=== PATIENT | male | born 1970 | race Two or more races ===

== ENCOUNTER 2022-05-19 22:30 | Inpatient (IN) | payer MEDICAID, OTHER ==
[~2022-05-19] VITALS: Ht 172.7 cm; Wt 72.6 kg
--- NOTE | 2022-05-19 22:49 | NUR ---
BIBPA C/O PULLED OUT G TUBE AROUND 5 PM. PT ALTERRED AT BASELINE MENTAL STATUS. GTUBE SITE COVERED BY 4X4 GAUZE. ALL V/S STABLE. MD WAS AT BEDSIDE FOR ASSESSMENT.
--- NOTE | 2022-05-19 22:50 | NUR ---
XRAY AT BEDSIDE
--- NOTE | 2022-05-19 22:58 | NUR ---
RAC #18G S/L BLOOD AND URINE COLLECTED AND SENT TO LAB
--- NOTE | 2022-05-19 22:59 | NUR ---
COVID SWAB DONE AND SENT TO LAB
[2022-05-19 23:05] LABS: BASOPHILS % (AUTO) 0.2 % (0.0-2.0); EOSINOPHILS % (AUTO) 0.9 % (0.0-6.0); HEMATOCRIT 37 % (39-51); HEMOGLOBIN 12.1 g/dL (13.5-17.5); LYMPHOCYTES # (AUTO) 2.3 K/uL (0.8-4.8); LYMPHOCYTES % (AUTO) 29.2 % (20.0-44.0); MEAN CORPUSCULAR HGB CONC 33 g/dl (31.0-36.0); MEAN CORPUSCULAR VOLUME 82 fL (80-96); MONOCYTES # (AUTO) 0.6 K/uL (0.1-1.30); MONOCYTES % (AUTO) 7.9 % (2.0-12.0); NEUTROPHILS # (AUTO) 4.9 K/uL (1.8-8.9); NEUTROPHILS % (AUTO) 61.8 % (43.0-81.0); PLATELET COUNT (AUTO) 215 K/uL (150-450); RED BLOOD CELL COUNT(AUTO) 4.46 MIL/uL (4.5-6.0); WHITE BLOOD COUNT (AUTO) 7.9 K/uL (4.3-11.0)
[2022-05-19 23:13] LABS: CALCIUM, SERUM 9.7 mg/dL (8.5-10.1); CREATININE 0.8 mg/dL (0.6-1.3); POTASSIUM 3.8 mmol/L (3.5-5.1)
[2022-05-19 23:15] VITALS: BP 152/89
[2022-05-19 23:19] LABS: ALBUMIN 3.3 g/dL (3.4-5.0); BILIRUBIN,DIRECT 0.1 mg/dL (0.0-0.2); BILIRUBIN,TOTAL 0.4 mg/dL (0.2-1.0); TOTAL PROTEIN, SERUM 7.6 g/dL (6.4-8.2)
--- NOTE | 2022-05-19 23:56 | NUR ---
DR CADENA DO ON PHONECALL WITH WALTER RUSSELL SAFETY ENGINEER REGARDING ADMISSION
[2022-05-20] MEDS ORDERED: ONDANSETRON HCL/PF 4 MG/2 ML VIAL IVP PRN
[2022-05-20] MEDS ORDERED: ACETAMINOPHEN 325 MG TABLET PO PRN
[2022-05-20] MEDS ORDERED: MAGNESIUM HYDROXIDE 30 ML UDC PO PRN
[2022-05-20] MEDS ORDERED: Z GUARD REMEDY 4 OZ OINT TP PRN
--- NOTE | 2022-05-20 00:06 | NUR ---
WALTER RUSSELL TALENT ACQUISITION LEAD AT PT'S BEDSIDE
--- NOTE | 2022-05-20 01:19 | NUR ---
REPORT GIVEN TO JULIETTE
--- NOTE | 2022-05-20 01:23 | NUR ---
PT TRANSPORTED VIA GURNEY TO ROOM 323
[2022-05-20 01:30] VITALS: BP 152/89
--- NOTE | 2022-05-20 01:30 | NUR ---
RN NOTES: AT 0117 RECIEVED ENDORSEMENT FROM HIRA/ER/RN PATIENT WAS BROUG[facility] TO ER [facility]UL[facility], AT 17OO THIS AFTERNOON HIS PEG TUBE WAS PULLED OUT, NO CATHETER PALCEMENT TO MAINTAIN PATENCY, ER DOCTOR TRIED TO REINSERT PEG BUT UNABLE TO DO SO , IT IS ALREADY CLOSED, A/DAYANARA SELF ONLY, HE HAS TRACH-PEICE, ON ROOM AIR, SPO2-99% , NO SKIN ISSUES, LABS ARE WITHIN NORMAL RANGE ,MED RECON DONE, MRSA SENT, COVID 19 RAPID TEST-NEGATIVE, HE HAS ANTONI AND ANTONI VACCINE, NO BOOSTER.
--- NOTE | 2022-05-20 01:35 | NUR ---
RN NOTES: -NEW ADMIT AT 0130, BROUGHT IN BY ER STAFF VIA ZAHRAA, A/O X1 SELF ONLY,NON VERBAL, ORIENTED TO UNIT AND STAFF, ON T-PIECE, ROOM AIR 94%, NO COUGHING, NON LABORED BREATHING, NO SOB, HIS PEG TUBE IS OUT, FOR REINSERTION.CHILEAN-18,IV CANNULA ON RAC G#18, NO DISCOLORATION ON BUE AND BLE, HE HAS WEAKNESS AND FLACCID ON BUE, BLE, HE WAS ABLE TO DO FLEXION AND EXTENSION AROM AND FOLLOW COMMAND. DRYNESS OF THE SKIN ON THE RIGHT AND LEFT FOOT. -FALL,SAFETY, ASPIRATION AND SEIZURE PRECAUTION OBSERVED. Addendum: 05/20/22 at 0555 by YESICA DICKERSON RN HOWARD NOTES: MORE WEAKNESS ON THE LEFT SIDE OF THE BODY,COMPARED TO THE RIGHT SIDE, NO CONTRACTURES, HIS LEFT FIST IS ALWAYS CLOSE, NOTED WITH LEFT FACIAL DEVIATION AND HIS LEFT EYES IS BLINKING AND CLOSE AT TIMES LIKE PTOSIS.
[2022-05-20] MEDS: IV D5/0.45 NACL 1,000 ML IV PRN ×2 (02:06→16:16)
--- NOTE | 2022-05-20 02:06 | NUR ---
RN NOTES: -IVF OF D5%1/2 NS AT 75 ML/HR, STARTED. BODY CHECK DONE: 1) REDNESS ON THE PEG SITE, PER ENDORSEMENT IT WAS GEORGIAN-18 2) IV CANNULA ON THE RFA G#18 3)T-PIECE 4)NO DENTURES, NO HEARING AID, NO PACE MAKER 5)RUE AND LUE WEAKNESS 6)DRY SKIN ON THE RIGHT AND LEFT FOOT AREA
--- NOTE | 2022-05-20 05:55 | NUR ---
RN NOTES: TURNING AND REPOSITIONING DONE, BRIEF CHANGE 2X, LARGE AMOUNT OF PEE, NO BM, IVF ONGOING.
[2022-05-20 06:26] LABS: BASOPHILS % (AUTO) 0.2 % (0.0-2.0); EOSINOPHILS % (AUTO) 0.9 % (0.0-6.0); HEMATOCRIT 37 % (39-51); HEMOGLOBIN 11.9 g/dL (13.5-17.5); LYMPHOCYTES # (AUTO) 2.2 K/uL (0.8-4.8); LYMPHOCYTES % (AUTO) 31.8 % (20.0-44.0); MEAN CORPUSCULAR HGB CONC 33 g/dl (31.0-36.0); MEAN CORPUSCULAR VOLUME 83 fL (80-96); MONOCYTES # (AUTO) 0.5 K/uL (0.1-1.30); MONOCYTES % (AUTO) 7.8 % (2.0-12.0); NEUTROPHILS # (AUTO) 4.1 K/uL (1.8-8.9); NEUTROPHILS % (AUTO) 59.3 % (43.0-81.0); PLATELET COUNT (AUTO) 211 K/uL (150-450); RED BLOOD CELL COUNT(AUTO) 4.41 MIL/uL (4.5-6.0)
[2022-05-20 06:58] LABS: CALCIUM, SERUM 9.6 mg/dL (8.5-10.1); CREATININE 0.8 mg/dL (0.6-1.3); POTASSIUM 3.8 mmol/L (3.5-5.1)
[2022-05-20 07:19] LABS: THYROID STIMULATING HORMONE 3.482 uIU/mL (0.358-3.74)
--- NOTE | 2022-05-20 07:30 | NUR ---
MS RN OPENING NOTES RECEIVED PATIENT ON BED AWAKE AND A/O TO SELF ONLY, NON VERBAL. WITH T-PIECE AND ON ROOM AIR TOLERATING WELL. IN NO SIGNS OF PAIN VIA FLACC LEVEL OF PAIN. WITH IV ACCESS AT THE RIGHT AC G18 WITH D5 1/2NS AT 75ML/HR INFUSING WELL. STILL FOR GI CONSULT WITH DR. DAVIS. SAFETY MEASURES IN PLACED. CALL LIGHT WITHIN REACH. BED ON LOWEST LOCKED POSITION, SIDE RAILS UP X2. WILL CONTINUE TO MONITOR.
[2022-05-20 08:00] VITALS: BP 140/90
--- NOTE | 2022-05-20 08:05 | NUR ---
RN NOTES: ABLE TO SLEEP AND REST, HE LOOKS MORE RELAX, ADEQUATE OUTPUT, CLEAN AND CHANGE,ON NPO, IVF CONTINUE, TO F/U WITH GI THIS MORNING FOR PEG REINSERTION. ENDORSED FOR CONTINUITY OF CARE.
[2022-05-20] MEDS ORDERED: MAGN400O6 GT (08:20)
[2022-05-20] MEDS ORDERED: IBUP-1953 GT (08:20)
[2022-05-20] MEDS ORDERED: CRAN3875 GT (08:20)
[2022-05-20] MEDS ORDERED: NA P133E RC (08:20)
[2022-05-20] MEDS ORDERED: ATOR20TA GT (08:20)
[2022-05-20] MEDS ORDERED: FAMO20TA8 GT (08:20)
[2022-05-20] MEDS ORDERED: HYDR-4075 GT (08:20)
[2022-05-20] MEDS ORDERED: MINE3.5O26 EACHEYE (08:20)
[2022-05-20] MEDS ORDERED: AMLO10TA4 GT (08:20)
[2022-05-20] MEDS ORDERED: LACT-209 GT (08:20)
[2022-05-20] MEDS ORDERED: BISA10SU11 RC (08:20)
[2022-05-20] MEDS ORDERED: ALBU8.5H8 IH ×2 (08:20)
[2022-05-20] MEDS ORDERED: SENN-261 GT (08:20)
[2022-05-20] MEDS ORDERED: DOCU50LI GT (08:20)
[2022-05-20] MEDS ORDERED: LABE200T5 GT (08:20)
[2022-05-20] MEDS ORDERED: ACET650S26 GT (08:20)
[2022-05-20] MEDS: PANTOPRAZOLE 40 MG VIAL IV SCH (09:37)
[2022-05-20 16:02] VITALS: BP 130/84
--- NOTE | 2022-05-20 19:05 | NUR ---
MS RN CLOSING NOTES PATIENT ON BED AWAKE AND A/O TO SELF ONLY, NON VERBAL. WITH T-PIECE AND ON ROOM AIR TOLERATING WELL. IN NO SIGNS OF PAIN VIA FLACC LEVEL OF PAIN. WITH IV ACCESS AT THE RIGHT AC G18 WITH D5 1/2NS AT 75ML/HR INFUSING WELL. STILL FOR GI CONSULT WITH DR. DAVIS. DUE MEDS GIVEN. SAFETY MEASURES IN PLACED. CALL LIGHT WITHIN REACH. BED ON LOWEST LOCKED POSITION, SIDE RAILS UP X2. WILL ENDORSE TO NEXT SHIFT FOR CODI.
[2022-05-20 20:00] VITALS: BP 138/93
[2022-05-21] MEDS: IV D5/0.45 NACL 1,000 ML IV PRN ×2 (05:28→18:42)
--- NOTE | 2022-05-21 05:37 | NUR ---
CLOSING NOTES: TURNED AND REPOSITIONED Q 2- 3 HOURS HE IS NONVERBAL HIS EYE ARE TRACKING NON FOCUSING ARMS ELEVATED ON PILLOW HANDS PUFFY CALLED THE MOTHER ON THE PHONE AND WITH 2ND NURSE WE WERE ABLE TO GET A TELEPHONE CONSENT FOR PEG REPLACEMENT WHEN MD RYAN ALEJO
[2022-05-21 08:00] VITALS: BP 146/88
[2022-05-21] MEDS: PANTOPRAZOLE 40 MG VIAL IV SCH (08:11)
[2022-05-21 08:27] LABS: BASOPHILS % (AUTO) 0.2 % (0.0-2.0); EOSINOPHILS % (AUTO) 0.6 % (0.0-6.0); HEMATOCRIT 35 % (39-51); HEMOGLOBIN 11.6 g/dL (13.5-17.5); LYMPHOCYTES # (AUTO) 1.9 K/uL (0.8-4.8); LYMPHOCYTES % (AUTO) 27.5 % (20.0-44.0); MEAN CORPUSCULAR HGB CONC 33 g/dl (31.0-36.0); MEAN CORPUSCULAR VOLUME 83 fL (80-96); MONOCYTES # (AUTO) 0.6 K/uL (0.1-1.30); MONOCYTES % (AUTO) 7.9 % (2.0-12.0); NEUTROPHILS # (AUTO) 4.5 K/uL (1.8-8.9); NEUTROPHILS % (AUTO) 63.8 % (43.0-81.0); PLATELET COUNT (AUTO) 218 K/uL (150-450); RED BLOOD CELL COUNT(AUTO) 4.24 MIL/uL (4.5-6.0)
[2022-05-21 08:42] LABS: CREATININE 0.8 mg/dL (0.6-1.3); MAGNESIUM 1.9 mg/dL (1.8-2.4); PHOSPHORUS 4.5 mg/dL (2.5-4.9); POTASSIUM 3.5 mmol/L (3.5-5.1)
[2022-05-21 16:00] VITALS: BP 150/100
--- NOTE | 2022-05-21 19:47 | NUR ---
RECEIVING NOTES: EYES OPEN TRACKING NO EYE FOCUS NON VERBAL BED ALARM ON RESP EVEN AND UNLABORED
[2022-05-21 19:58] VITALS: BP 147/94
[2022-05-21 20:00] VITALS: BP 147/94
[2022-05-22] MEDS: IV D5/0.45 NACL 1,000 ML IV PRN (04:48)
--- NOTE | 2022-05-22 05:17 | NUR ---
CLOSING NOTES: EYES OPEN TRACKING NO FUCUSING MAX ASSIST TO REPOSITION AND CLEAN PATIENT NON VERBAL ABD S/P PEG TUBE SITE DEEP PINK IN COLOR NPO WAITING FOR MDMOGHIMI TO REPLACE THE REMOVED PEG
[2022-05-22 06:26] LABS: BASOPHILS % (AUTO) 0.1 % (0.0-2.0); EOSINOPHILS % (AUTO) 0.4 % (0.0-6.0); HEMATOCRIT 35 % (39-51); HEMOGLOBIN 11.8 g/dL (13.5-17.5); LYMPHOCYTES # (AUTO) 1.8 K/uL (0.8-4.8); LYMPHOCYTES % (AUTO) 20.5 % (20.0-44.0); MEAN CORPUSCULAR HGB CONC 33 g/dl (31.0-36.0); MEAN CORPUSCULAR VOLUME 82 fL (80-96); MONOCYTES # (AUTO) 0.7 K/uL (0.1-1.30); MONOCYTES % (AUTO) 7.4 % (2.0-12.0); NEUTROPHILS # (AUTO) 6.4 K/uL (1.8-8.9); NEUTROPHILS % (AUTO) 71.6 % (43.0-81.0); PLATELET COUNT (AUTO) 215 K/uL (150-450); RED BLOOD CELL COUNT(AUTO) 4.31 MIL/uL (4.5-6.0)
[2022-05-22 06:52] LABS: CALCIUM, SERUM 9.1 mg/dL (8.5-10.1); CREATININE 0.7 mg/dL (0.6-1.3); MAGNESIUM 1.6 mg/dL (1.8-2.4); PHOSPHORUS 4.2 mg/dL (2.5-4.9); POTASSIUM 3.3 mmol/L (3.5-5.1)
--- NOTE | 2022-05-22 07:00 | NUR ---
MS RN OPENING NOTES PATIENT LAYING IN BED, ALERT TO SELF, NON-VERBAL. T-PIECE IN PLACE, PATIENT TOLERATING WELL ON ROOM AIR WITH NO S/S RESPIRATORY DISTRESS. NO S/S OF PAIN OR DISCOMFORT AT THIS TIME. R AC # 18 [address] CLEAN AND INTACT WITH D5 1/2 NS INFUSING @ 75 ML/HR. SAFETY MEASURES IN PLACE: BED IN LOWEST LOCKED POSITION, SIDE RAILS UP X 2, CALL LIGHT WITHIN REACH. WILL CONTINUE TO MONITOR.
[2022-05-22 08:00] VITALS: BP 160/99
[2022-05-22] MEDS: Magnesium 1GM/D5W 100ML PREMIX 100 ML IV SCH ×2 (09:37→11:02)
[2022-05-22] MEDS: PANTOPRAZOLE 40 MG VIAL IV SCH (09:37)
[2022-05-22] MEDS: POTASSIUM CL. PREMIX PERIPHER. 50 ML IV SCH ×2 (12:04→13:39)
[2022-05-22 16:00] VITALS: BP 155/123
--- NOTE | 2022-05-22 19:28 | NUR ---
MS RN OPENING RECEIVED PATIENT IN BED, A/OX1, NON-VERBAL. NO S/S OF APPARENT DISTRESS IN ROOM AIR, WITH TRACH NOTED. NOT EXHIBITING PAIN VIA FLACC AT THIS TIME. SAFETY IN PLACE. WILL CONTINUE WITH THE PLAN OF CARE FOR PATIENT.
[2022-05-22 20:00] VITALS: BP 117/71
[2022-05-22 20:30] VITALS: BP 145/105
--- NOTE | 2022-05-22 20:30 | NUR ---
MS RN NOTE- BP RE-CHECK 145/105
[2022-05-23] MEDS: IV D5/0.45 NACL 1,000 ML IV PRN ×2 (06:25→21:32)
[2022-05-23 06:47] LABS: BASOPHILS % (AUTO) 0.2 % (0.0-2.0); EOSINOPHILS % (AUTO) 0.7 % (0.0-6.0); HEMATOCRIT 35 % (39-51); HEMOGLOBIN 11.7 g/dL (13.5-17.5); LYMPHOCYTES # (AUTO) 1.9 K/uL (0.8-4.8); LYMPHOCYTES % (AUTO) 27.7 % (20.0-44.0); MEAN CORPUSCULAR HGB CONC 33 g/dl (31.0-36.0); MEAN CORPUSCULAR VOLUME 82 fL (80-96); MONOCYTES # (AUTO) 0.6 K/uL (0.1-1.30); MONOCYTES % (AUTO) 8.8 % (2.0-12.0); NEUTROPHILS # (AUTO) 4.3 K/uL (1.8-8.9); NEUTROPHILS % (AUTO) 62.6 % (43.0-81.0); PLATELET COUNT (AUTO) 200 K/uL (150-450); RED BLOOD CELL COUNT(AUTO) 4.29 MIL/uL (4.5-6.0); WHITE BLOOD COUNT (AUTO) 6.9 K/uL (4.3-11.0)
[2022-05-23 07:14] LABS: CALCIUM, SERUM 8.8 mg/dL (8.5-10.1); CREATININE 0.7 mg/dL (0.6-1.3); MAGNESIUM 1.9 mg/dL (1.8-2.4); PHOSPHORUS 4.2 mg/dL (2.5-4.9); POTASSIUM 3.2 mmol/L (3.5-5.1)
--- NOTE | 2022-05-23 07:17 | NUR ---
MS RN CLOSING NOTE PATIENT IN BED WITH EYES CLOSED. EASY TO AROUSE. NO S/S OF APPARENT DISTRESS IN ROOM AIR. NOT EXHIBITING PAIN VIA FLACC. IV D5 1/2 NS RUNNING @75MLS/HR. NEEDS ATTENDED. FOR G-TUBE PLACEMENT TODAY. SAFETY KEPT IN PLACE THE WHOLE SHIFT. ENDORSED TO MICHAEL JAIMES FOR CONTINUITY OF CARE.
--- NOTE | 2022-05-23 07:30 | NUR ---
MS RN OPENING RECEIVED PATIENT AWAKE IN BED, A/OX1, NON-VERBAL. NO S/S OF APPARENT DISTRESS NOTED. NO PAIN NOTED. NO FACIAL GRIMACING NOTED.IN ROOM AIR, WITH TRACH NOTED. ALL SAFETY MEASURES IN PLACE. BED LOCKED IN THE LOWEST POSITION. CALL LIGHT AND TABLE IN EASY REACH. SIDE RAILS UP TIMES 2.WILL CONTINUE TO MONITOR.
[2022-05-23 08:00] VITALS: BP 152/94
[2022-05-23] MEDS: PANTOPRAZOLE 40 MG VIAL IV SCH (08:28)
[2022-05-23] MEDS: POTASSIUM CL. PREMIX PERIPHER. 50 ML IV SCH ×4 (08:29→12:11)
[2022-05-23 16:00] VITALS: BP 136/110
--- NOTE | 2022-05-23 19:03 | NUR ---
MS RN CLOSING NOTES PATIENT AWAKE IN BED, A/OX1, NON-VERBAL. NO S/S OF APPARENT DISTRESS NOTED. NO PAIN NOTED. NO FACIAL GRIMACING NOTED.IN ROOM AIR, WITH TRACH NOTED. ALL DUE MEDS GIVEN VIA IV. AWAITING FOR PEG PLACEMENT TOMORROW NOON. ALL SAFETY MEASURES IN PLACE. BED LOCKED IN THE LOWEST POSITION. CALL LIGHT AND TABLE IN EASY REACH. SIDE RAILS UP TIMES 2.WILL ENDORSE FOR CODI..
--- NOTE | 2022-05-23 19:15 | NUR ---
RN NOTE PT RESTING IN BED, OPENS EYES WHEN NAME IS CALLED. NONVERBAL. NO S/S OF PAIN NOTED. WITH TRACH NOTED, ON ROOM AIR, RESPIRATIONS EVEN/UNLABORED, O2 SAT 96%. IV SITE R-FA #18G INTACT/PATENT, ON D5 1/2 NS @75ML/HR. PT WITH OLD GT SITE- CLOSED. PLANNED FOR PEG PLACEMENT TOMORROW. PT IN NO ACUTE DISTRESS. SAFETY MEASURES IN PLACE. WILL CONT TO MONITOR.
[2022-05-23 20:00] VITALS: BP 158/100
[2022-05-24 06:23] LABS: BASOPHILS % (AUTO) 0.1 % (0.0-2.0); HEMATOCRIT 36 % (39-51); HEMOGLOBIN 11.7 g/dL (13.5-17.5); LYMPHOCYTES # (AUTO) 1.6 K/uL (0.8-4.8); LYMPHOCYTES % (AUTO) 27.8 % (20.0-44.0); MEAN CORPUSCULAR HGB CONC 32 g/dl (31.0-36.0); MEAN CORPUSCULAR VOLUME 83 fL (80-96); MONOCYTES # (AUTO) 0.5 K/uL (0.1-1.30); MONOCYTES % (AUTO) 8.5 % (2.0-12.0); NEUTROPHILS # (AUTO) 3.7 K/uL (1.8-8.9); NEUTROPHILS % (AUTO) 62.6 % (43.0-81.0); PLATELET COUNT (AUTO) 175 K/uL (150-450); RED BLOOD CELL COUNT(AUTO) 4.38 MIL/uL (4.5-6.0); WHITE BLOOD COUNT (AUTO) 5.8 K/uL (4.3-11.0)
[2022-05-24 06:48] LABS: CALCIUM, SERUM 8.5 mg/dL (8.5-10.1); CREATININE 0.7 mg/dL (0.6-1.3); MAGNESIUM 1.8 mg/dL (1.8-2.4); PHOSPHORUS 4.4 mg/dL (2.5-4.9); POTASSIUM 3.6 mmol/L (3.5-5.1)
--- NOTE | 2022-05-24 07:00 | NUR ---
RN NOTE PT RESTING IN BED, OPENS EYES TO STIMULI, NONVERBAL RESPONSE. RESPIRATIONS EVEN/UNLABORED. NO S/S OF PAIN NOTED. PT REMAINED STABLE DURING THE SHIFT. ALL NEEDS ATTENDED TO. SAFETY MEASURES MAINTAINED.
--- NOTE | 2022-05-24 07:25 | NUR ---
MS RN OPENING NOTES RECEIVED PATIENT AWAKE IN BED, A/OX1, NON-VERBAL. NO S/S OF APPARENT DISTRESS NOTED. NO PAIN NOTED. NO FACIAL GRIMACING NOTED.IN ROOM AIR, WITH TRACH NOTED. AWAITING FOR PEG PLACEMENT AT NOON. IV ACCESS ON THE RFA # 18 INTACT. RUNNING D5 1/2 NS AT 75 ML/HR. ALL SAFETY MEASURES IN PLACE. BED LOCKED IN THE LOWEST POSITION. CALL LIGHT AND TABLE IN EASY REACH. SIDE RAILS UP TIMES 2. HEAD OF THE BED ELEVATED. WILL CONTINUE TO MONITOR.
[2022-05-24 08:00] VITALS: BP 177/112
[2022-05-24] MEDS: PANTOPRAZOLE 40 MG VIAL IV SCH (09:00)
--- NOTE | 2022-05-24 09:00 | NUR ---
RN NOTES INFORMED FRANCISCO RIVERA FOR THE PATIENT'S BLOOD PRESSURE READING OF 177/112, P=87. NO NEW ORDER WAS GIVEN. PATIENT MOVES CONSTANTLY. NOT SURE IF THE READING IS CORRECT.
[2022-05-24] MEDS: IV D5/0.45 NACL 1,000 ML IV PRN (11:10)
--- NOTE | 2022-05-24 12:00 | NUR ---
RN NOTES PATIENT'S MOTHER VERY SAD AND ANGRY OF THE SON'S CONDITION. SHE WAS COMPLAINING THAT SON IS NOT EATING FOR 4 DAYS. PATIENT'S MOM SPOKE WITH WORKFORCE PLANNING ANALYST. SURGERY WAS SUPPOSED TO BE DONE TODAY AT 1200 , BUT IT WAS CANCELLED BY DR. DAVIS.
[2022-05-24] MEDS ORDERED: IBUPROFEN SUSP 100 MG/5 ML UDC GT PRN (13:30)
[2022-05-24] MEDS ORDERED: ACETAMINOPHEN 650 MG/20.3 ML UDC GT PRN (13:30)
[2022-05-24] MEDS ORDERED: ALBUTEROL SULFATE 8 GM HFA.AER.AD IH PRN (13:30)
[2022-05-24] MEDS ORDERED: NA PHOS,M-B/NA PHOS,DI-BA 1 EA ENEMA RC PRN (13:30)
[2022-05-24] MEDS ORDERED: BISACODYL SUPP (10 MG) 10 MG/SUPP.RECT SUPP.RECT RC PRN (13:30)
[2022-05-24] MEDS ORDERED: hydrALAZINE HCL 10 MG TABLET GT PRN (13:30)
[2022-05-24] MEDS ORDERED: ALBUTEROL FS 2.5 MG/0.5 ML VIAL.NEB NEB PRN (13:30)
[2022-05-24] MEDS ORDERED: JEVITY 1.2 CAL 1,000 ML BOTTLE GT SCH (13:30)
[2022-05-24 16:00] VITALS: BP 159/105
[2022-05-24] MEDS: LANOLIN/MIN OIL/PETROLAT,WHT 3.5 GM TUBE EACHEYE SCH (16:48)
[2022-05-24] MEDS: FAMOTIDINE (20 MG) 20 MG TABLET GT SCH (16:49)
[2022-05-24] MEDS ORDERED: PETROLATUM WHITE EACHEYE SCH (17:00)
[2022-05-24] MEDS ORDERED: [UNRECOGNIZED DRUG - OTHER] EACHEYE SCH (17:00)
[2022-05-24] MEDS ORDERED: MINERAL OIL EACHEYE SCH (17:00)
[2022-05-24] MEDS: DOCUSATE SODIUM LIQ 100 MG/10 ML UDC GT SCH (17:44)
[2022-05-24] MEDS ORDERED: ALBUTEROL SULFATE 8 GM HFA.AER.AD IH SCH (18:00)
[2022-05-24] MEDS ORDERED: Medication Not On Formulary EA (Cran/Vitc/Mannose/Inulin/Brom (Uti-Stat Liquid) 3,875 MG GT SCH (18:00)
--- NOTE | 2022-05-24 18:51 | NUR ---
MS RN CLOSING NOTES PATIENT AWAKE IN BED, A/OX1, NON-VERBAL. NO S/S OF APPARENT DISTRESS NOTED. NO PAIN NOTED. NO FACIAL GRIMACING NOTED.IN ROOM AIR, WITH TRACH NOTED. AWAITING FOR PEG PLACEMENT . SURGERY FOR PEG PLACEMENT WAS CANCELLED AGAIN TODAY. IV ACCESS ON THE RFA # 18 INTACT. RUNNING D5 1/2 NS AT 75 ML/HR. HELD ALL MEDICATIONS WITH GTUBE. NO GTUBE IN PLACE YET. ALL SAFETY MEASURES IN PLACE. BED LOCKED IN THE LOWEST POSITION. CALL LIGHT AND TABLE IN EASY REACH. SIDE RAILS UP TIMES 2. HEAD OF THE BED ELEVATED. MOM PRESENT AT BED SIDE SINCE 1100. WILL ENDORSE FOR CODI..
[2022-05-24 20:00] VITALS: BP 153/113
[2022-05-24] MEDS ORDERED: hydrALAZINE HCL IV 20 MG VIAL IV PRN (20:00)
--- NOTE | 2022-05-24 20:17 | NUR ---
RN NOTE BP 163/113, P 83. REQUESTED AND RECEIVED ORDER FROM ON-CALL UMER GONZALEZ FOR HYDRALAZINE 10MG IV Q4H PRN FOR SBP>160. NOTED AND CARRIED OUT
[2022-05-24] MEDS: LABETALOL HCL (100MG) 100 MG TABLET GT SCH (20:36)
--- NOTE | 2022-05-24 20:36 | NUR ---
RN NOTE MEDS VIA GT NOT GIVEN. PT WITH NO GT ACCESS AT THIS TIME. PLAN FOR PEG PLACEMENT PENDING TOMORROW
[2022-05-24] MEDS ORDERED: Medication Not On Formulary EA (Labetalol Hcl 400 MG) GT SCH (21:00)
[2022-05-24] MEDS: SENNOSIDES 8.6 MG TABLET GT SCH (21:41)
[2022-05-24] MEDS: ATORVASTATIN 10 MG TABLET PO SCH (21:41)
[2022-05-24] MEDS: ALBUTEROL FS 2.5 MG/0.5 ML VIAL.NEB NEB SCH (21:58)
[2022-05-24] MEDS ORDERED: Medication Not On Formulary EA (Atorvastatin Calcium (Lipitor) 20 MG) GT SCH (22:00)
[2022-05-24] MEDS ORDERED: MAGNESIUM HYDROXIDE 30 ML UDC GT PRN (22:00)
[2022-05-25] MEDS: IV D5/0.45 NACL 1,000 ML IV PRN ×2 (00:45→15:45)
[2022-05-25] MEDS: ALBUTEROL FS 2.5 MG/0.5 ML VIAL.NEB NEB SCH ×4 (02:48→20:32)
[2022-05-25 06:45] LABS: BASOPHILS % (AUTO) 0.2 % (0.0-2.0); EOSINOPHILS % (AUTO) 0.6 % (0.0-6.0); HEMATOCRIT 35 % (39-51); HEMOGLOBIN 11.5 g/dL (13.5-17.5); LYMPHOCYTES # (AUTO) 1.7 K/uL (0.8-4.8); LYMPHOCYTES % (AUTO) 26.5 % (20.0-44.0); MEAN CORPUSCULAR HGB CONC 33 g/dl (31.0-36.0); MEAN CORPUSCULAR VOLUME 82 fL (80-96); MONOCYTES # (AUTO) 0.6 K/uL (0.1-1.30); MONOCYTES % (AUTO) 9.7 % (2.0-12.0); NEUTROPHILS # (AUTO) 4.1 K/uL (1.8-8.9); PLATELET COUNT (AUTO) 186 K/uL (150-450); RED BLOOD CELL COUNT(AUTO) 4.27 MIL/uL (4.5-6.0); WHITE BLOOD COUNT (AUTO) 6.4 K/uL (4.3-11.0)
[2022-05-25 06:51] LABS: CALCIUM, SERUM 8.9 mg/dL (8.5-10.1); CREATININE 0.7 mg/dL (0.6-1.3); MAGNESIUM 1.6 mg/dL (1.8-2.4); PHOSPHORUS 3.9 mg/dL (2.5-4.9); POTASSIUM 3.1 mmol/L (3.5-5.1)
--- NOTE | 2022-05-25 06:54 | NUR ---
RN NOTE PT STABLE THROUGHOUT THE NIGHT. NO SOB. NO S/S OF PAIN. PT SLEPT WELL DURING THE NIGHT. IV SITE R-FA #18G INTACT/PATENT, ONGOING IVF OF D5 1/2 NS @75ML/HR. PT IN NO ACUTE DISTRESS. SAFETY MEASURES MAINTAINED.
--- NOTE | 2022-05-25 07:30 | NUR ---
MS RN OPENING NOTES RECEIVED PATIENT AWAKE IN BED, A/OX1, NON-VERBAL. NO S/S OF APPARENT DISTRESS NOTED. NO PAIN NOTED. NO FACIAL GRIMACING NOTED. MOTHER IS AT BEDSIDE. IN ROOM AIR, WITH TRACH NOTED. AWAITING FOR PEG PLACEMENT 05/25/2022. IV ACCESS ON THE RFA # 18 INTACT, RUNNING D5 1/2 NS AT 75 ML/HR. ALL SAFETY MEASURES IN PLACE. BED LOCKED IN THE LOWEST POSITION. CALL LIGHT AND TABLE IN EASY REACH. SIDE RAILS UP TIMES 2. HEAD OF THE BED ELEVATED. WILL CONTINUE TO MONITOR.
[2022-05-25 08:00] VITALS: BP 140/95
[2022-05-25] MEDS: PANTOPRAZOLE 40 MG/PACK PACK GT SCH (09:00)
[2022-05-25] MEDS: LABETALOL HCL (100MG) 100 MG TABLET GT SCH ×2 (09:00→21:00)
[2022-05-25] MEDS: FAMOTIDINE (20 MG) 20 MG TABLET GT SCH ×2 (09:00→17:00)
[2022-05-25] MEDS: AMLODIPINE BESYLATE 10 MG TABLET GT SCH (09:00)
--- NOTE | 2022-05-25 09:00 | NUR ---
MS RN NOTES: SCHEDULED AM MEDS NOT GIVEN DUE TO GTUBE PENDING PLACEMENT BY
[2022-05-25] MEDS ORDERED: POTASSIUM CHLORIDE 20 MEQ POWDER PACKET GT ONE (10:00)
[2022-05-25] MEDS: Magnesium 1GM/D5W 100ML PREMIX 100 ML IV SCH ×2 (11:05→12:06)
[2022-05-25] MEDS: LANOLIN/MIN OIL/PETROLAT,WHT 3.5 GM TUBE EACHEYE SCH ×2 (12:36→19:30)
[2022-05-25 16:00] VITALS: BP 148/100
[2022-05-25] MEDS: DOCUSATE SODIUM LIQ 100 MG/10 ML UDC GT SCH (18:00)
--- NOTE | 2022-05-25 19:15 | NUR ---
RN NOTE PT AWAKE IN BED, OPENS EYES WHEN NAME IS CALLED, NONVERBAL RESPONSE. NO S/S OF PAIN NOTED. WITH TRACH IN PLACE/INTACT WITH DRESSING CLEAN/DRY. ON ROOM AIR, O2 SAT 95%, RESPIRATIONS EVEN/UNLABORED. IV ACCESS: R-FA #18G INTACT/PATENT, INFUSING D5 1/2 NS @75ML/HR. PT IN NO ACUTE DISTRESS. SAFETY MEASURES IN PLACE. WILL CONT TO MONITOR.
--- NOTE | 2022-05-25 19:46 | NUR ---
MS RN CLOSING NOTES: PATIENT AWAKE IN BED, A/OX1, NON-VERBAL. NO S/S OF APPARENT DISTRESS NOTED. NO PAIN NOTED. NO FACIAL GRIMACING NOTED. MOTHER IS AT BEDSIDE. IN ROOM AIR, WITH TRACH NOTED. AWAITING FOR PEG PLACEMENT 05/26/2022. IV ACCESS ON THE RFA # 18 INTACT, RUNNING D5 1/2 NS AT 75 ML/HR. ALL SAFETY MEASURES IN PLACE. BED LOCKED IN LOWEST POSITION. CALL LIGHT AND TABLE IN EASY REACH. SIDE RAILS UP TIMES 2. HEAD OF THE BED ELEVATED, ENDORSED TO PM SHIFT.
[2022-05-25 20:00] VITALS: BP 145/68
[2022-05-25] MEDS: SENNOSIDES 8.6 MG TABLET GT SCH (21:51)
[2022-05-25] MEDS: ATORVASTATIN 10 MG TABLET PO SCH (21:51)
--- NOTE | 2022-05-25 21:52 | NUR ---
RN NOTE GT MEDS NOT GIVEN, NO GT ACCESS AT THIS TIME. PT FOR PEG PLACEMENT TOMORROW
[2022-05-26] MEDS: ALBUTEROL FS 2.5 MG/0.5 ML VIAL.NEB NEB SCH ×4 (01:41→19:35)
[2022-05-26] MEDS: IV D5/0.45 NACL 1,000 ML IV PRN ×2 (05:49→21:23)
--- NOTE | 2022-05-26 06:26 | NUR ---
MICHAEL NOTE R-CHICHO IV SITE LEAKING. REMOVED. RESTARTED NEW IV ACCESS ON L-HAND #22G WITH GOOD BLOOD RETURN. JOSIANE WELL Addendum: 05/26/22 at 0656 by DEVORAH JARQUIN RN CORRECTION: NOT R-CHICHO, R-JASON IV SITE
[2022-05-26 06:38] LABS: BASOPHILS % (AUTO) 0.2 % (0.0-2.0); EOSINOPHILS % (AUTO) 0.9 % (0.0-6.0); HEMATOCRIT 34 % (39-51); HEMOGLOBIN 11.1 g/dL (13.5-17.5); LYMPHOCYTES # (AUTO) 1.6 K/uL (0.8-4.8); LYMPHOCYTES % (AUTO) 23.5 % (20.0-44.0); MEAN CORPUSCULAR HGB CONC 33 g/dl (31.0-36.0); MEAN CORPUSCULAR VOLUME 82 fL (80-96); MONOCYTES # (AUTO) 0.6 K/uL (0.1-1.30); MONOCYTES % (AUTO) 8.6 % (2.0-12.0); NEUTROPHILS # (AUTO) 4.4 K/uL (1.8-8.9); NEUTROPHILS % (AUTO) 66.8 % (43.0-81.0); PLATELET COUNT (AUTO) 192 K/uL (150-450); RED BLOOD CELL COUNT(AUTO) 4.15 MIL/uL (4.5-6.0); WHITE BLOOD COUNT (AUTO) 6.6 K/uL (4.3-11.0)
[2022-05-26 06:54] LABS: CALCIUM, SERUM 8.9 mg/dL (8.5-10.1); CREATININE 0.6 mg/dL (0.6-1.3); MAGNESIUM 1.9 mg/dL (1.8-2.4); PHOSPHORUS 4.5 mg/dL (2.5-4.9); POTASSIUM 3.2 mmol/L (3.5-5.1)
--- NOTE | 2022-05-26 07:40 | NUR ---
MS RN OPENING NOTES: PATIENT AWAKE IN BED, A/OX1, NON-VERBAL, RESPONDS TO PAINFUL STIMULI, MOTHER AT BEDSIDE. NO S/S OF SOB OR ACUTE DISTRESS NOTED. NO FACIAL GRIMACING NOTED. PT ON ROOM AIR, WITH TRACH NOTED. AWAITING FOR PEG PLACEMENT 05/26/2022 APPROX 12PM. IV ACCESS ON THE LH #22 INTACT, RUNNING D5 1/2 NS AT 75 ML/HR. ALL SAFETY MEASURES IN PLACE. BED LOCKED IN LOWEST POSITION. CALL LIGHT AND TABLE IN EASY REACH. SIDE RAILS UP TIMES 2. HEAD OF THE BED ELEVATED, WILL CONTINUE TO MONITOR.
[2022-05-26 08:00] VITALS: BP 106/70
[2022-05-26] MEDS: AMLODIPINE BESYLATE 10 MG TABLET GT SCH (09:00)
[2022-05-26] MEDS: FAMOTIDINE (20 MG) 20 MG TABLET GT SCH ×2 (09:00→16:16)
[2022-05-26] MEDS: PANTOPRAZOLE 40 MG/PACK PACK GT SCH (09:00)
[2022-05-26] MEDS: LABETALOL HCL (100MG) 100 MG TABLET GT SCH ×2 (09:00→21:11)
[2022-05-26] MEDS: LANOLIN/MIN OIL/PETROLAT,WHT 3.5 GM TUBE EACHEYE SCH ×2 (09:46→16:15)
--- NOTE | 2022-05-26 09:49 | NUR ---
MED NON ADMIN RN NOTES: SCHEDULED AM MEDS VIA GT NON ADMIN, PENDING PEG PLACEMENT 05/26/2022 @ 1200
[2022-05-26] MEDS ORDERED: FENTANYL PF 100MCG/2ML AMPUL ONE (09:54)
[2022-05-26] MEDS ORDERED: POTASSIUM CHLORIDE 20 MEQ POWDER PACKET PO SCH (10:00)
--- NOTE | 2022-05-26 10:30 | NUR ---
MS RN NOTES: OR STAFF TRANSPORTED PT FOR SURGERY VIA BED. PT PRE OP VITALS WNL BP - 106/70, HR- 77, RESP - 20, O2 SAT 97%. ALL CONSENT FORMS SIGNED. PT'S MOM ACCOMPANIED PT.
[2022-05-26] MEDS ORDERED: hydrALAZINE HCL IV 20 MG VIAL ONE (12:08)
--- NOTE | 2022-05-26 12:42 | NUR ---
MS RN NOTES: 1242- PT CAME BACK FROM OR POST PEG PLACEMENT. REPORT RECEIVED FROM .NET ARCHITECT. VITALS STABLE POST OP BP- 137/82, HR- 100, TEMP- 98.2, O2 SAT 98% ON RA. IV ACCESS PATENT, INFUSING D5 1/2 NS @ 75 ML/HR. EXPLAINED TO MOTHER, PT WILL START TUBE FEED 05/27/2022 AM AND RESUME MEDS 4 HOURS POST OP, MOTHER VERBALIZED UNDERSTANDING, WILL CONT MONITORING PT.
[2022-05-26 16:00] VITALS: BP 135/85
[2022-05-26] MEDS: DOCUSATE SODIUM LIQ 100 MG/10 ML UDC GT SCH (16:15)
[2022-05-26] MEDS ORDERED: POTASSIUM CHLORIDE 20 MEQ POWDER PACKET GT SCH (17:00)
--- NOTE | 2022-05-26 19:15 | NUR ---
RN NOTE PT AWAKE IN BED, A/OX1, NONVERBAL RESPONSE. RESPIRATIONS EVEN/UNLABORED. ON ROOM AIR AND JOSIANE WELL. TRACH PRESENT WITH DRESSING C/D/I. NO S/S OF PAIN NOTED. PT S/P PEG PLACEMENT THIS AM. ONLY WATER AND MEDS THRU GT TONIGHT, GTF WILL START TOMORROW, PER MD. IV SITE: #22G INTACT/PATENT, INFUSING D5 1/2NS @75ML/HR. PT IN NO ACUTE DISTRESS. SAFETY MEASURES IN PLACE, BED IN LOWEST LOCKED POSITION, SR UPX2, CALL LIGHT WITHIN REACH. WILL CONT TO MONITOR.
--- NOTE | 2022-05-26 19:35 | NUR ---
MS RN CLOSING NOTES: PATIENT S/P PEG PLACEMENT, AWAKE IN BED, A/OX1, NON-VERBAL, RESPONDS TO PAINFUL STIMULI. NO S/S OF SOB OR ACUTE DISTRESS NOTED. NO FACIAL GRIMACING NOTED. PT ON ROOM AIR, WITH TRACH NOTED. AWAITING FOR PEG PLACEMENT 05/26/2022 APPROX 12PM. IV ACCESS ON THE LH #22 INTACT, RUNNING D5 1/2 NS AT 75 ML/HR. ALL SAFETY MEASURES IN PLACE. BED LOCKED IN LOWEST POSITION. CALL LIGHT AND TABLE IN EASY REACH. SIDE RAILS UP TIMES 2. HEAD OF THE BED ELEVATED, WILL ENDORSE TO PM SHIFT.
[2022-05-26 20:00] VITALS: BP 133/98
[2022-05-26] MEDS: SENNOSIDES 8.6 MG TABLET GT SCH (21:11)
[2022-05-26] MEDS: ATORVASTATIN 10 MG TABLET PO SCH (21:11)
[2022-05-27] MEDS: ALBUTEROL FS 2.5 MG/0.5 ML VIAL.NEB NEB SCH ×3 (02:17→14:00)
--- NOTE | 2022-05-27 06:43 | NUR ---
RN NOTE PT RESTING IN BED, A/OX1, OPENS EYES TO STIMULI, NONVERBAL RESPONSE. NO S/S OF PAIN NOTED. RESPIRATIONS EVEN/UNLABORED. WITH TRACH COLLAR, WITH DRESSING C/D/I. IV SITE ON L-HAND #22G INTACT/PATENT, CONT ON D5 1/2 NS @75ML/HR. GT IN PLACE/PATENT, WITH DRESSING C/D/I. KEPT PT CLEAN/DRY AND REPOSITIONED Q2HR AND PRN. PT IN NO ACUTE DISTRESS. SAFETY MEASURES MAINTAINED.
[2022-05-27 06:59] LABS: CALCIUM, SERUM 8.9 mg/dL (8.5-10.1); CREATININE 0.6 mg/dL (0.6-1.3); POTASSIUM 3.5 mmol/L (3.5-5.1)
--- NOTE | 2022-05-27 07:18 | NUR ---
RN OPENING NOTES RECEIVED PATIENT IN BED AWAKE, ALERT TO SELF, NO SIGNS OF ACUTE DISTRESS NOTED. PATIENT WITH T-PIECE ON ROOM AIR, TOLERATING WELL, SPO2 @ 96 %. WITH IV ACCESS ON LEFT HAND #22G, INTACT AND PATENT WITH D5 1/2 NS @ 75 ML/HR RUNNING. WITH G-TUBE INTACT AND PATENT. POSITIVE PLACEMENT CHECKED, NO RESIDUAL NOTED. SAFETY MEASURE IN PLACE, HOB ELEVATED, BED IN LOWEST AND LOCKED POSITION, SIDE RAILS UP X2, CALL LIGHT PLACED WITHIN EASY REACH. WILL CONTINUE TO MONITOR PATIENT.
[2022-05-27 08:00] VITALS: BP 142/96
[2022-05-27] MEDS: PANTOPRAZOLE 40 MG/PACK PACK GT SCH (08:24)
[2022-05-27] MEDS: FAMOTIDINE (20 MG) 20 MG TABLET GT SCH ×2 (08:24→17:13)
[2022-05-27] MEDS: LANOLIN/MIN OIL/PETROLAT,WHT 3.5 GM TUBE EACHEYE SCH ×2 (08:24→17:13)
[2022-05-27] MEDS: AMLODIPINE BESYLATE 10 MG TABLET GT SCH (08:25)
[2022-05-27 08:28] VITALS: BP 142/96
[2022-05-27] MEDS: LABETALOL HCL (100MG) 100 MG TABLET GT SCH (08:28)
[2022-05-27] MEDS: IV D5/0.45 NACL 1,000 ML IV PRN (12:37)
[2022-05-27] MEDS: DOCUSATE SODIUM LIQ 100 MG/10 ML UDC GT SCH (17:13)
--- NOTE | 2022-05-27 18:30 | NUR ---
SULPHATE TESTER NOTE PATIENT DISCHARGED TO [facility] IN STABLE CONDITION. REMAINS WITH TRACH COLLAR INTACT, WITH DRESSING CLEAN AND DRY, STABLE ON ROOM AIR. IV ACCESS ON LEFT HAND REMOVED, NO BLEEDING NOTED, PRESSURE DRESSING APPLIED TO SITE. PATIENT DOESN'T HAVE ANY BELONGINGS. PATIENT SKIN GENERALLY INTACT, G-TUBE STOMA SITE CLEAN, NO BLEEDING, NO REDNESS NOTED, WITH CLEAN AND DRY DRESSING. EXIT CARE FOLDER GIVEN TO AMBULANCE STAFF. MOTHER AT BEDSIDE. REPORT GIVEN TO GALINA Lama RN FROM [facility]. PATIENT LEFT UNIT @1830 VIA [facility]. CN AWARE OF DISCHARGE.
== END 2022-05-27 19:35 | DRG 252 ==
LOC: ER 22:32 → MED 23:28
PROVIDERS: ADMIT Nurse Practitioner Family; ATTEND Internal Medicine
PROC: 0DP68UZ Removal of Feeding Device from Stomach, Via Natural or Artificial Opening Endoscopic (ICD-10-PCS; principal; 2022-05-26)
PROC: 0DH63UZ Insertion of Feeding Device into Stomach, Percutaneous Approach (ICD-10-PCS; 2022-05-26)
DX: K94.23 Gastrostomy malfunction (principal); I61.9 Nontraumatic intracerebral hemorrhage, unspecified; G93.49 Other encephalopathy; E44.1 Mild protein-calorie malnutrition; J96.10 Chronic respiratory failure, unspecified whether with hypoxia or hypercapnia; K21.9 Gastro-esophageal reflux disease without esophagitis; Z20.822 Contact with and (suspected) exposure to COVID-19; I10 Essential (primary) hypertension; R13.10 Dysphagia, unspecified; E78.5 Hyperlipidemia, unspecified; I69.398 Other sequelae of cerebral infarction; E87.6 Hypokalemia; D64.9 Anemia, unspecified; Y84.8 Other medical procedures as the cause of abnormal reaction of the patient, or of later complication, without mention of misadventure at the time of the procedure; Y92.129 Unspecified place in nursing home as the place of occurrence of the external cause
CPT/HCPCS: 36415; 43246; 71045-TC; 80048-TC; 80076-TC; 82728-TC; 82962-TC; 83540-TC; 83690-TC; 83735-TC; 84100-TC; 84443-TC; 85025-TC; 85730-TC; 87081-TC; 94799-TC; A4623; A7526; C9113; C9803; G0378; J0360; J3010; J3475; J3480; J3490; J7040; J7050

== ENCOUNTER 2022-10-18 21:57 | Inpatient (IN) | payer MEDICAID ==
[~2022-10-18] VITALS: Ht 170.2 cm; Wt 73.9 kg
[~2022-10-18 21:57] MED LIST: ACET650S26 GT; ALBU8.5H8 IH; AMLO10TA4 GT; ATOR20TA GT; BISA10SU11 RC; CRAN3875 GT; DOCU50LI GT; FAMO20TA8 GT; HYDR-4075 GT; IBUP-1953 GT; LABE200T5 GT; LACT-209 GT; MAGN400O6 GT; MINE3.5O26 EACHEYE; NA P133E RC; SENN-261 GT
--- NOTE | 2022-10-18 22:00 | NUR ---
ATTACHED TO VENT ON AC MODE, TV 500L, RATE OF 16, PEEP OF 5 SATURATING 98%. BP 64/43mmHg. DR CARVAJAL MADE AWARE. IV NS1L BOLUS TO START
--- NOTE | 2022-10-18 22:00 | NUR ---
BIBRA86 FROM [facility] FOR SOB, TRACHE PT O2 SAT 88 ROOM AIR. PATIENT CAME WITH [place] VENT FROM [facility]. WITH GTUBE FOR FEEDING/MEDS, WITH BLOOD IN PENILE AREA. PLACED COMFORTABLY IN BED. PERINEAL CARE DONE. VITALS CHECKED.
--- NOTE | 2022-10-18 22:09 | NUR ---
RT NOTE PATIENT RECEIVED FROM EMS VIA AMBU BAG WITH Postcard & TagEN 8.0 TRACH. PLACED PATIENT ON MECHANICAL VENT ON SETTINGS OF AC16 VT500 70% PEEP+5 PER MD. SPO2 AT 95-97%. TRACH IS SECURED AND MIDLINE. ALARMS ARE SET AND AUDIBLE. MECHANICAL VENT IS PLUGGED INTO RED OUTLET. PATIENT SUCTIONED FOR TRACE, WHITE, THIN SECRETIONS. PENDING ABG ORDER. EMERGENCY EQUIPMENT AT PATIENT BEDSIDE. WILL CONTINUE TO MONITOR PATIENT. Addendum: 10/19/22 at 0552 by BETTY DIXON RT Amended: Links added.
--- NOTE | 2022-10-18 22:10 | NUR ---
IV CANNULA G20 INSERTED ON RIGHT FA G20. BLOOD DRAWN AND SENT TO LAB. BLOOD CULTURE INCLUDED
[2022-10-18] MEDS ORDERED: ACETAMINOPHEN 650 MG/SUPP.RECT RC ONE ×2 (22:21→22:30)
[2022-10-18] MEDS ORDERED: VANCOMYCIN 1 GM in IV D5W 250 ML IV ONE (22:30)
[2022-10-18] MEDS ORDERED: PIPERACILLIN /TAZOBACTAM 3.375 G in IV D5W 50 ML IV ONE (22:30)
[2022-10-18] MEDS ORDERED: IV NS 0.9% 1,000 ML BAG IV ONE ×2 (22:30→23:30)
--- NOTE | 2022-10-18 22:40 | NUR ---
IFC INSERTED. MD AWARE THAT PRIOR TO INSERTION THERE IS TRAUMA TO PENIS. WILL OBSERVE FOR OUTPUT
--- NOTE | 2022-10-18 22:41 | NUR ---
COVID SWAB DONE AND SENT TO LAB
[2022-10-18] MEDS ORDERED: PIPERACILLIN /TAZOBACTAM 3.375 G VIAL IV ONE (22:46)
[2022-10-18] MEDS ORDERED: VANCOMYCIN 1 GM VIAL ONE (22:52)
--- NOTE | 2022-10-18 23:04 | NUR ---
IV CANNULA G18 INSERTED ON LEFT FA.
[2022-10-18 23:09] LABS: HEMATOCRIT 32 % (39-51); HEMOGLOBIN 10.1 g/dL (13.5-17.5); LYMPHOCYTES # (AUTO) 0.5 K/uL (0.8-4.8); LYMPHOCYTES % (AUTO) 4.6 % (20.0-44.0); MEAN CORPUSCULAR HGB CONC 32 g/dl (31.0-36.0); MEAN CORPUSCULAR VOLUME 85 fL (80-96); MONOCYTES # (AUTO) 0.1 K/uL (0.1-1.30); MONOCYTES % (AUTO) 0.9 % (2.0-12.0); NEUTROPHILS # (AUTO) 9.4 K/uL (1.8-8.9); NEUTROPHILS % (AUTO) 94.5 % (43.0-81.0); PLATELET COUNT (AUTO) 89 K/uL (150-450); RED BLOOD CELL COUNT(AUTO) 3.76 MIL/uL (4.5-6.0); WHITE BLOOD COUNT (AUTO) 9.9 K/uL (4.3-11.0)
--- NOTE | 2022-10-18 23:17 | NUR ---
RAPID INFLUENZA SWAB DONE AND SENT TO LAB
--- NOTE | 2022-10-18 23:18 | NUR ---
ABG DONE BY RT AT BEDSIDE
[2022-10-18 23:21] LABS: ABG BASE EXCESS 2.2 mmol/L; ABG PH 7.463 (7.350-7.450); COHb 0.1 % (0.5-1.5); MetHb 0.3 % (0.0-1.5); PEEP,BG 5 cm H2O; SITE, ABG Left Radial; VENT MODE, BG AC16 VT500 70% PEEP+5; VT, ABG 500 mL
[2022-10-18 23:25] LABS: CALCIUM, SERUM 8.8 mg/dL (8.5-10.1); CARBON DIOXIDE 30 mmol/L (21-32); CHLORIDE 111 mmol/L (98-107); CREATININE 2.1 mg/dL (0.6-1.3); GLUCOSE 132 mg/dL (74-106); POTASSIUM 2.9 mmol/L (3.5-5.1); SODIUM SERUM 150 mmol/L (136-145); UREA NITROGEN, BLOOD 38 mg/dL (7-18)
[2022-10-18 23:37] LABS: ALANINE AMINOTRANSFERASE 26 U/L (12-78); ALBUMIN 2.7 g/dL (3.4-5.0); ALKALINE PHOSPHATASE 115 U/L (46-116); ASPARTATE AMINOTRANSFERASE 29 U/L (15-37); BILIRUBIN,DIRECT 0.4 mg/dL (0.0-0.2); BILIRUBIN,TOTAL 0.8 mg/dL (0.2-1.0); TOTAL PROTEIN, SERUM 7.3 g/dL (6.4-8.2)
[2022-10-19] MEDS: POTASSIUM CL. PREMIX PERIPHER. 50 ML IV SCH ×4 (00:27→05:30)
[2022-10-19] MEDS ORDERED: Z GUARD REMEDY 4 OZ OINT TP PRN (01:00)
[2022-10-19] MEDS ORDERED: ALBUTEROL FS 2.5 MG/3 ML VIAL.NEB NEB PRN (01:00)
[2022-10-19] MEDS ORDERED: MORPHINE SULFATE INJ 2 MG/ML DISP.SYRIN IV PRN (01:00)
[2022-10-19] MEDS ORDERED: IPRATROPIUM NEB FS 0.5 MG/2.5 ML AMPUL.NEB NEB PRN (01:00)
[2022-10-19] MEDS ORDERED: MAGNESIUM HYDROXIDE 30 ML UDC PO PRN (01:00)
[2022-10-19] MEDS ORDERED: HYDROCODONE/APAP 5/325MG TABLET GT PRN (01:00)
[2022-10-19] MEDS ORDERED: MAG HYDROX/AL HYDROX/SIMETH 30 ML UDC PO PRN (01:00)
[2022-10-19] MEDS ORDERED: ONDANSETRON HCL/PF 4 MG/2 ML VIAL IVP PRN (01:00)
--- NOTE | 2022-10-19 01:13 | NUR ---
COVID PCR DONE AND SENT TO LAB
--- NOTE | 2022-10-19 01:20 | NUR ---
CALLED USMAN. MICHAEL GAITAN WILL CALL ME BACK
--- NOTE | 2022-10-19 01:41 | NUR ---
REPORT GIVEN TO MICHAEL GAITAN.
[2022-10-19] MEDS ORDERED: POTASSIUM CL. PREMIX PERIPHER. 50 ML ONE (01:43)
--- NOTE | 2022-10-19 01:47 | NUR ---
2ND BAG OF KCL 10MEQ/50 ML STARTED
[2022-10-19] MEDS ORDERED: CEFEPIME 1 GM in IV D5W 50 ML IV SCH (01:48)
--- NOTE | 2022-10-19 02:05 | NUR ---
CASHIER CREDIT NOTE RECEIVED PT FROM ER VIA ZAHRAA, NON VERBAL, PT ON THE [facility] TOLERATING SETTINGS WELL, TELE MONITOR READING ST HR 107, IV ACCESS LFA #18G AND RHAND #20G, RUNNING NS BOLUS AND K+ AT 10MEQ. PT HAS NO WOUNDS. ALL SAFETY MEASURES IN PLACE, WILL CONTINUE TO MONITOR.
[2022-10-19 02:10] VITALS: BP 88/46
--- NOTE | 2022-10-19 02:12 | NUR ---
TRANSFERRED PATIENT TO ROOM VIA ACLS
[2022-10-19] MEDS ORDERED: CEFEPIME 1 GM VIAL ONE (02:43)
--- NOTE | 2022-10-19 02:48 | NUR ---
RN NOTE CALLED [facility] FOR POLST AND ADVANCED DIRECTIVES. BOTH WILL BE FAXED.
--- NOTE | 2022-10-19 03:06 | NUR ---
RN NOTE CRITICAL LAB OF LACTIC ACID 5.3
--- NOTE | 2022-10-19 03:20 | NUR ---
[address] [place] was updated on patient's condition including blood pressure 88/46 upon admission to unit then rechecked and obtained 90/54 after 2L NS bolus in ER, lactic acid trending up at 5.3, and no urine output with order to increase IVF to 100ml/hr and to change status to USMAN. Orders noted and carried out. Patient being closely monitored at this time.
[2022-10-19 04:21] LABS: BAND % (MANUAL) 6 % (0.0-5.0); BASOPHILS % (MANUAL) 0 % (0.0-2.0); EOSINOPHILS % (MANUAL) 0 % (0-4); LYMPHOCYTES % (MANUAL) 4 % (16-48); MONOCYTES % (MANUAL) 3 % (0-11.0); NEUTROPHILS % (MANUAL) 87 (42-76)
--- NOTE | 2022-10-19 07:02 | NUR ---
RN CLOSING NOTE ALL SIGNIFICANT CHANGES THROUGHOUT SHIFT WAS DOCUMENTED. PT STABLE WILL ENDORSE TO MORNING SHIFT FOR CODI.
[2022-10-19 07:29] LABS: CALCIUM, SERUM 7.7 mg/dL (8.5-10.1); CREATININE 1.9 mg/dL (0.6-1.3); POTASSIUM 3.8 mmol/L (3.5-5.1)
[2022-10-19 08:00] VITALS: BP 96/58
--- NOTE | 2022-10-19 08:00 | NUR ---
RN NOTES RECEIVED PATIENT ON TRACHEA/VENT DEPENDENT FIO2-50%, TV-500, P-5, AC-16,SHILEY-8, SUCTION MOUTH CARE DONE, T-102.6 F, PATIENT HAS LEFT SIDE WEAKNESS, TOTAL CARE, SKIN ASSESSMENT DONE, NOTED BLEEDING FROM CATHETER INSERTION SIDE, BUT NO URINE OUTPUT, REMOVED B[place] CATHETER , BUT UNABLE TO INSERT NEW ONE. NOTIFIED BATAYANAN TOOL CRIB SUPERVISOR AND GET NEW ORDER TO INSERT SPECIAL B[place]. ORDER TAKEN AND CARRIED OUT. GT INTACT, DUE MEDICATION ADMINISTERED, INFUSING 1/2 NS@75 ML/HR ON LFA INTACT, ASSIST TURN AND REPOSTION Q 2 HR.
[2022-10-19] MEDS ORDERED: CHLO473M5 MM (08:37)
[2022-10-19] MEDS ORDERED: GABA-532 GT (08:37)
[2022-10-19] MEDS ORDERED: BACL10TA GT (08:37)
[2022-10-19] MEDS: ACETAMINOPHEN 325 MG TABLET PO PRN (08:52)
--- NOTE | 2022-10-19 08:52 | NUR ---
RN NOTES T-102.6F ADMINISTERED TYLENOL 650 GT, AND COOLING MEASURES.
[2022-10-19] MEDS: IV 1/2NS 1000 ML 1,000 ML IV PRN (08:58)
[2022-10-19] MEDS ORDERED: PANTOPRAZOLE 40 MG VIAL IV SCH (09:00)
[2022-10-19] MEDS ORDERED: HEPARIN SODIUM, PORCINE 5000 UNITS/1 ML VIAL SQ SCH ×2 (09:30→16:43)
[2022-10-19 12:00] VITALS: BP 90/55
--- NOTE | 2022-10-19 12:00 | NUR ---
MICHAEL BENTLEY T-99.7 F MEDICATION WERE ADMINISTERED EFFECTIVE, SEEN HOSPITALIST PATIENT REMAINING NPO. WILL FOLLOW UP.
[2022-10-19 12:03] LABS: BILIRUBIN,URINE NEGATIVE (NEGATIVE); COLOR,URINE YELLOW (YELLOW); LEUKOCYTE ESTERASE ,URINE 2+ (NEGATIVE); NITRITE, URINE NEGATIVE (NEGATIVE); PROTEIN,URINE 1+ mg/dl (NEGATIVE); UGLUCOSE NEGATIVE (NEGATIVE)
[2022-10-19 12:16] LABS: BACTERIA,URINE Few /HPF (None Seen); SQUAMOUS EPITHELIAL CELL,UR Rare /HPF (None Seen)
[2022-10-19] MEDS: CEFEPIME 2 GM in IV D5W 100 ML IV SCH (14:08)
[2022-10-19 17:00] VITALS: BP 106/64
[2022-10-19] MEDS ORDERED: BISACODYL SUPP (10 MG) 10 MG/SUPP.RECT SUPP.RECT RC PRN (17:00)
[2022-10-19] MEDS ORDERED: MAGNESIUM HYDROXIDE 30 ML UDC GT PRN (17:00)
[2022-10-19] MEDS ORDERED: IBUPROFEN 400 MG TABLET GT PRN (17:00)
[2022-10-19] MEDS ORDERED: NA PHOS,M-B/NA PHOS,DI-BA 1 EA ENEMA RC PRN (17:00)
[2022-10-19] MEDS ORDERED: hydrALAZINE HCL 10 MG TABLET GT PRN (17:00)
[2022-10-19] MEDS ORDERED: ACETAMINOPHEN 650 MG/20.3 ML UDC GT PRN (17:00)
[2022-10-19] MEDS: DOCUSATE SODIUM LIQ 100 MG/10 ML UDC GT SCH (17:01)
[2022-10-19] MEDS: GABAPENTIN 100 MG CAPSULE GT SCH (17:01)
--- NOTE | 2022-10-19 17:42 | NUR ---
RN NOTES T-100F ADMINISTERED TYLENOL 650 ML VIA GT.
[2022-10-19] MEDS ORDERED: Medication Not On Formulary EA (Cran/Vitc/Mannose/Inulin/Brom (Uti-Stat Liquid) 3,875 MG GT SCH (18:00)
--- NOTE | 2022-10-19 18:30 | NUR ---
RN NOTES PM CARE DONE , SUCTION, DUE MEDICATION ADMINISTERED, PATIENT STIL REMAIN NPO ,ASSIST TURN AND REPOSTION Q 2 HR, INFUSING 1/2 NS @75 ML/HR ON LFA INTACT. URINE OUTPUT WAS 900 ML, KEEP HOB ELEVATED. ASSIST TURN AND REPOSTION Q 2 HR. ENDORSED ONCOMING NURSE CODI.
--- NOTE | 2022-10-19 19:30 | NUR ---
USMAN RN OPENING NOTE RECEIVED PT IN BED, NON VERBAL, ON MECH VENT, TOLERATING SETTINGS WELL, TELE MONITOR READING SR HR 88, IV ACCES LFA AND RHAND, RUNNING 1/2 NS @75ML/HR, [place] CATHETER IN PLACE DRAINING SIMON PINK TINGED URINE, GTUBE INTACT AND PATENT, NO RESIDUAL. NO FEEDING RUNNING PT NPO.ALL SAFETY MEASURES IN PLACE, BED ALARM ON, BED IN LOW AND LOCK POSITION, CALL LIGHT AND TABLE WITHIN EASY REACH, SIDE RAILS UP X2. WILL CONTINUE TO MONITOR.
[2022-10-19 20:00] VITALS: BP 100/66
[2022-10-19] MEDS: LABETALOL HCL (100MG) 100 MG TABLET GT SCH (21:00)
[2022-10-19] MEDS: HEPARIN SODIUM, PORCINE 5000 UNITS/1 ML VIAL SQ SCH (21:00)
[2022-10-19] MEDS: BACLOFEN (10 MG) 10 MG TABLET GT SCH (21:17)
[2022-10-19] MEDS: SENNOSIDES 8.6 MG TABLET GT SCH (21:17)
[2022-10-19] MEDS: CHLORHEXIDINE GLUCONATE 15 ML UDC MM SCH (21:17)
[2022-10-19] MEDS: ATORVASTATIN 10 MG TABLET GT SCH (21:17)
[2022-10-19] MEDS ORDERED: VANCOMYCIN 1 GM in IV D5W 250ml IV SCH (23:00)
[2022-10-20] VITALS (7 sets, daily range): BP systolic 110–130; BP diastolic 65–80
[2022-10-20] MEDS: CEFEPIME 2 GM in IV D5W 100 ML IV SCH (01:21)
[2022-10-20] MEDS: BACLOFEN (10 MG) 10 MG TABLET GT SCH ×3 (05:31→22:23)
[2022-10-20] MEDS: IV 1/2NS 1000 ML 1,000 ML IV PRN ×2 (06:09→22:31)
--- NOTE | 2022-10-20 06:52 | NUR ---
RN CLOSING NOTE ALL SIGNIFICANT CHANGES THROUGHOUT SHIFT WAS DOCUMENTED. PT STABLE WILL ENDORSE TO MORNING SHIFT FOR CODI.
--- NOTE | 2022-10-20 07:09 | NUR ---
RN NOTE CRITICAL LAB FOR BLOOD CULTURE, GRAM NEGATIVE RODS, WILL ENDORSE TO MORNING SHIFT
[2022-10-20 07:31] LABS: BASOPHILS % (AUTO) 0.1 % (0.0-2.0); EOSINOPHILS % (AUTO) 0.1 % (0.0-6.0); HEMATOCRIT 28 % (39-51); HEMOGLOBIN 8.9 g/dL (13.5-17.5); LYMPHOCYTES # (AUTO) 0.8 K/uL (0.8-4.8); LYMPHOCYTES % (AUTO) 5.6 % (20.0-44.0); MEAN CORPUSCULAR HGB CONC 32 g/dl (31.0-36.0); MEAN CORPUSCULAR VOLUME 85 fL (80-96); MONOCYTES # (AUTO) 0.4 K/uL (0.1-1.30); MONOCYTES % (AUTO) 2.7 % (2.0-12.0); NEUTROPHILS # (AUTO) 13.5 K/uL (1.8-8.9); NEUTROPHILS % (AUTO) 91.5 % (43.0-81.0); PLATELET COUNT (AUTO) 57 K/uL (150-450); RED BLOOD CELL COUNT(AUTO) 3.27 MIL/uL (4.5-6.0); WHITE BLOOD COUNT (AUTO) 14.8 K/uL (4.3-11.0)
[2022-10-20 07:43] LABS: CALCIUM, SERUM 8.2 mg/dL (8.5-10.1); CREATININE 1.1 mg/dL (0.6-1.3); MAGNESIUM 2.2 mg/dL (1.8-2.4); PHOSPHORUS 2.1 mg/dL (2.5-4.9); POTASSIUM 3.1 mmol/L (3.5-5.1)
--- NOTE | 2022-10-20 07:47 | NUR ---
USMAN RN OPENING NOTE RECEIVED PT IN BED, NON VERBAL, ON MECH VENT,TO TRACH SETTING ORDERED, TOLERATING SETTINGS WELL, TELE MONITOR READING SR HR 98, IV ACCES LFA AND RHAND, RUNNING 1/2 NS @75ML/HR, [place] CATHETER IN PLACE DRAINING YELLOW COLOR URINE, GTUBE INTACT AND PATENT, NO RESIDUAL. NO FEEDING RUNNING PT NPO.ALL SAFETY MEASURES IN PLACE, BED ALARM ON, BED IN LOW AND LOCK POSITION, CALL LIGHT AND TABLE WITHIN EASY REACH, SIDE RAILS UP X2. WILL CONTINUE TO MONITOR.
[2022-10-20] MEDS: CHLORHEXIDINE GLUCONATE 15 ML UDC MM SCH ×2 (08:34→22:25)
[2022-10-20] MEDS: PANTOPRAZOLE 40 MG/PACK PACK GT SCH (08:34)
[2022-10-20] MEDS: AMLODIPINE BESYLATE 10 MG TABLET GT SCH (08:34)
[2022-10-20] MEDS: LABETALOL HCL (100MG) 100 MG TABLET GT SCH ×2 (08:35→22:23)
[2022-10-20] MEDS: HEPARIN SODIUM, PORCINE 5000 UNITS/1 ML VIAL SQ SCH (08:36)
[2022-10-20] MEDS: GABAPENTIN 100 MG CAPSULE GT SCH ×3 (08:44→16:47)
--- NOTE | 2022-10-20 09:59 | NUR ---
garth rn note seen by dr donovan vallejo to start g tutbe feeding , ok the same formula from snf to start, will start Jevity at 70 ml per hpur for 20 hour will f\u
[2022-10-20] MEDS: VANCOMYCIN 1 GM in IV D5W 250ml IV SCH ×2 (10:52→22:25)
[2022-10-20] MEDS ORDERED: POTASSIUM CHLORIDE 20 MEQ POWDER PACKET PO ONE (11:00)
[2022-10-20] MEDS ORDERED: NEUTRA PHOS 1 POWD.PACKET GT ONE (12:00)
[2022-10-20] MEDS: JEVITY 1.2 CAL 1,000 ML BOTTLE GT PRN (12:06)
[2022-10-20] MEDS: MEROPENEM 500 MG in IV NS 0.9% 50 ML IV SCH ×2 (12:23→22:22)
--- NOTE | 2022-10-20 13:00 | NUR ---
USMAN RN NOTE KEEP CLEAN DRY , ALL NEEDS ATTENDED, TURN REPOSITIO , TRACH CARE DONE, WILL MONITOR
--- NOTE | 2022-10-20 15:14 | NUR ---
[facility] RN NOTE ORAL AND TRACH CARE DONE , KEEP CLEAN DRY, WILL MONITOR
--- NOTE | 2022-10-20 15:31 | NUR ---
USMAN RN NOTE SPOKE WITH DR BATES STATED THAT BY [facility]ISTA[facility] WAS ORDERED BLOOD TRANSFUSION , ORDERED TO D\C
[2022-10-20] MEDS: ACETAMINOPHEN 325 MG TABLET PO PRN ×2 (15:40→15:50)
--- NOTE | 2022-10-20 15:44 | NUR ---
USMAN RN NOTE PATIENT HEMODYNAMICALLY NOT STABLE, MID LINE INSERTED ORDERED. T NOW 100.4 TYLENOL AND COOLING MEASURE GIVEN ,WILL F\U
[2022-10-20 16:04] LABS: BAND % (MANUAL) 3 % (0.0-5.0); LYMPHOCYTES % (MANUAL) 9 % (16-48)
[2022-10-20 16:05] LABS: MONOCYTES % (MANUAL) 3 % (0-11.0); NEUTROPHILS % (MANUAL) 85 (42-76)
--- NOTE | 2022-10-20 16:18 | NUR ---
ORANGE GROWER NOTE DR LUNA MADE ROUND AWARE THAT PLATELETS 57 HEPARIN WAS D\C WILL F\U
--- NOTE | 2022-10-20 17:13 | NUR ---
USMAN RN NOTE RECHECKED T AFTER TYLENOL WAS GIVEN, T IS 99.7 AT THIS TIME ,WILL MONITOR
[2022-10-20] MEDS: DOCUSATE SODIUM LIQ 100 MG/10 ML UDC GT SCH (17:17)
--- NOTE | 2022-10-20 18:17 | NUR ---
USMAN RN NOTE PATIENT IN BED, AWAKE BOTH EYES OPEN ,WITH TRACH TO VENT SETTING ORDERED . ON TELE MONITOR, SR , WITH G TUBE FEEDING ORDERED RUINING 40 ML PER HOUR, MAX DOSE 70 ML PER HOUR, WILL MONITOR CLOSELY , KEEP HOB ELEVATED AT ALL TIME, TRACH AND ORAL SUCTION DONE, RT AND AND MID DORYS ON LT UPPER ARM IN PLACE AND FLUSHED WELL ,ON IVF ORDERED , WITH [place] CATH TO GRAVITY WITH YELLOW COLOR URIN BED IN LOWEST AND LOCKED POSITION , CALL LIGHT WITHIN REACH, WILL CONT TO MONITOR CLOSELY,
--- NOTE | 2022-10-20 20:00 | NUR ---
USMAN RN NOTE PT IN BED WITH EYES OPEN, NON VERBAL, ON VENT/TRACH TOLERATING THE SETTINGS WELL. NO DISTRESS OR DISCOMFORT NOTED. NO S/S OF PAIN NOTED. ON TELE SR HR 84. GTF JEVITY INFUSING AT 40 ML/HR, 0 ML RESIDUAL NOTED. KATELYN MIDLINE #20 G INTACT AND PATENT INFUSING IVF NS 75 ML/HR, NO S/S OF INFILTRATION NOTED. KEPT HIM DRY AND CLEAN. REPOSITION HIM Q2H, ALL NEEDS ATTENDED. SIDE RAILS UP X 3 AND CALL LIGHT WITHIN REACH. VSS. CONTINUE TO MONITOR HIM.
[2022-10-20] MEDS: ATORVASTATIN 10 MG TABLET GT SCH (22:22)
[2022-10-20] MEDS: SENNOSIDES 8.6 MG TABLET GT SCH (22:22)
[2022-10-21 01:00] VITALS: BP 128/65
[2022-10-21] MEDS: MEROPENEM 500 MG in IV NS 0.9% 50 ML IV SCH ×3 (04:51→21:54)
[2022-10-21] MEDS: BACLOFEN (10 MG) 10 MG TABLET GT SCH ×3 (04:52→21:54)
[2022-10-21 05:00] VITALS: BP 113/70
--- NOTE | 2022-10-21 07:25 | NUR ---
USMAN RN OPENING NOTE RECEIVED PT IN BED, NON VERBAL, ON MECH VENT,TO TRACH SETTING ORDERED, TOLERATING SETTINGS WELL, TELE MONITOR READING SR HR , IV ACCES KATELYN MIDLINE, RUNNING NS @75ML/HR, [place] CATHETER IN PLACE DRAINING YELLOW COLOR URINE, GTUBE INTACT AND PATENT, NO RESIDUAL. GT RUNNING JEVITY AT 40 ML/HR.ALL SAFETY MEASURES IN PLACE, BED ALARM ON, BED IN LOW AND LOCK POSITION, CALL LIGHT AND TABLE WITHIN EASY REACH, SIDE RAILS UP X2. WILL CONTINUE TO MONITOR.
[2022-10-21 08:00] VITALS: BP 118/75
[2022-10-21 08:11] LABS: CALCIUM, SERUM 8.2 mg/dL (8.5-10.1); PHOSPHORUS 2.3 mg/dL (2.5-4.9); POTASSIUM 3.5 mmol/L (3.5-5.1)
[2022-10-21 08:27] LABS: BASOPHILS % (AUTO) 0.2 % (0.0-2.0); EOSINOPHILS % (AUTO) 0.3 % (0.0-6.0); HEMATOCRIT 25 % (39-51); HEMOGLOBIN 8.1 g/dL (13.5-17.5); LYMPHOCYTES # (AUTO) 0.9 K/uL (0.8-4.8); LYMPHOCYTES % (AUTO) 9.3 % (20.0-44.0); MEAN CORPUSCULAR HGB CONC 32 g/dl (31.0-36.0); MEAN CORPUSCULAR VOLUME 86 fL (80-96); MONOCYTES # (AUTO) 0.4 K/uL (0.1-1.30); MONOCYTES % (AUTO) 4.1 % (2.0-12.0); NEUTROPHILS # (AUTO) 7.9 K/uL (1.8-8.9); NEUTROPHILS % (AUTO) 86.1 % (43.0-81.0); PLATELET COUNT (AUTO) 54 K/uL (150-450); RED BLOOD CELL COUNT(AUTO) 2.91 MIL/uL (4.5-6.0); WHITE BLOOD COUNT (AUTO) 9.2 K/uL (4.3-11.0)
[2022-10-21] MEDS: GABAPENTIN 100 MG CAPSULE GT SCH ×3 (08:58→16:54)
[2022-10-21] MEDS: CHLORHEXIDINE GLUCONATE 15 ML UDC MM SCH ×2 (08:59→21:54)
[2022-10-21] MEDS: AMLODIPINE BESYLATE 10 MG TABLET GT SCH (08:59)
[2022-10-21] MEDS: PANTOPRAZOLE 40 MG/PACK PACK GT SCH (08:59)
[2022-10-21] MEDS: LABETALOL HCL (100MG) 100 MG TABLET GT SCH ×2 (09:03→21:00)
[2022-10-21] MEDS ORDERED: NEUTRA PHOS 1 POWD.PACKET GT ONE (10:00)
[2022-10-21] MEDS: VANCOMYCIN 1 GM in IV D5W 250ml IV SCH ×2 (10:44→23:00)
[2022-10-21 12:00] VITALS: BP 104/64
[2022-10-21 16:00] VITALS: BP 92/56
--- NOTE | 2022-10-21 16:37 | NUR ---
RN notes Spoke to DR. Calderon, pt sodium 151 if you want to continue with IV .45 ns with order to stop current IV and start D5W at 75 ml/hr
[2022-10-21] MEDS ORDERED: IV D5W 1,000 ML IV PRN (17:00)
[2022-10-21 17:01] LABS: BAND % (MANUAL) 12 % (0.0-5.0); LYMPHOCYTES % (MANUAL) 9 % (16-48); NEUTROPHILS % (MANUAL) 76 (42-76)
[2022-10-21 17:02] LABS: MONOCYTES % (MANUAL) 3 % (0-11.0)
[2022-10-21] MEDS: DOCUSATE SODIUM LIQ 100 MG/10 ML UDC GT SCH (17:12)
--- NOTE | 2022-10-21 17:34 | NUR ---
RN NOTES: SEEN BY DR DAVIDSON NEPHROLOGY WITH ORDER TO STOP IV FLUID , START FREE WATER 300 ML EVERY 6 HOURS X 4 TIMES ONLY
--- NOTE | 2022-10-21 19:20 | NUR ---
USMAN RN NOTE PATIENT IN BED, AWAKE BOTH EYES OPEN ,non verbal, WITH TRACH TO VENT SETTING ORDERED . ON TELE MONITOR, SR , WITH G TUBE FEEDING ORDERED NEPRO RUINING 40 ML PER HOUR, WILL MONITOR CLOSELY , KEEP HOB ELEVATED AT ALL TIME, TRACH AND ORAL SUCTION DONE, MID DORYS ON LT UPPER ARM IN PLACE AND FLUSHED WELL , , WITH BARRAGAN CATH TO GRAVITY WITH YELLOW COLOR URIN BED IN LOWEST AND LOCKED POSITION , CALL LIGHT WITHIN REACH, ENDORSED TO HOT TOP LINER HELPER RN FOR CODI
[2022-10-21 20:00] VITALS: BP 104/66
--- NOTE | 2022-10-21 20:00 | NUR ---
DRAFTER COMMERCIAL NOTE PT IN BED ALSEEP, AROUSABLE. NON VERBAL. ON VENT/TRACH TOLERATING THE SETTINGS WELL. NO SOB, NO DISTRESS OR DISCOMFORT NOTED. NO S/S OF PAIN NOTED. ON TELE SR HR 71. ON GT FEEDING JEVITY 1.2 ARCENIO 50 ML/HR, 0 ML RESIDUAL NOTED. KATELYN MIDLINE INTACT AND PATENT. REPOSITION HIM FOR COMFORT AND SKIN MANAGEMENT. KEPT HIM DRY AND CLEAN. ALL NEEDS ATTENDED. VSS. SIDE RAILS UP X 2 AND CALL LIGHT WITHIN REACH. CONTINUE TO MONITOR HIM.
[2022-10-21] MEDS: ATORVASTATIN 10 MG TABLET GT SCH (21:54)
[2022-10-21] MEDS: SENNOSIDES 8.6 MG TABLET GT SCH (21:54)
[2022-10-21] MEDS: JEVITY 1.2 CAL 1,000 ML BOTTLE GT PRN (22:04)
--- NOTE | 2022-10-21 23:04 | NUR ---
INSEAMER NOTE VANCO T 25, MEDICATION HELD.
[2022-10-22] VITALS (7 sets, daily range): BP systolic 107–127; BP diastolic 68–85
--- NOTE | 2022-10-22 01:59 | NUR ---
RT pt received on mechanical vent with current settings. trach, shiley 8, vent plugged in to red outlet. ambu bag at bedside. spare trach at bedside. no resp distress, no sob. no secretions suctioned via trach.
[2022-10-22] MEDS: MEROPENEM 500 MG in IV NS 0.9% 50 ML IV SCH ×3 (05:39→21:31)
[2022-10-22] MEDS: BACLOFEN (10 MG) 10 MG TABLET GT SCH ×3 (05:44→21:31)
--- NOTE | 2022-10-22 06:39 | NUR ---
AERIAL SPRAYER NOTE PT IN BED ASLEEP AROUSABLE. TOLERATING VENT SETTINGS WELL. NO DISTRESS OR DISCOMFORT NOTED. NO S/S OF PAIN NOTED. . ON TELE SR . KEPT HIM DRY AND CLEAN. ALL NEEDS ATTENDED. WILL ENDORSE TO DAY SHIFT NURSE FOR CONTINUE TO CARE.
--- NOTE | 2022-10-22 06:40 | NUR ---
MERCHANDISER NOTE PT IN BED ASLEEP AROUSABLE. NO DISTRESS OR DISCOMFORT NOTED. NO S/S OF PAIN NOTED. . ON TELE SR . KEPT HER DRY AND CLEAN. DTR AT BED SIDE. ALL NEEDS ATTENDED. WILL ENDORSE TO DAY SHIFT NURSE FOR CONTINUE TO CARE.
[2022-10-22 07:11] LABS: CALCIUM, SERUM 7.6 mg/dL (8.5-10.1); PHOSPHORUS 3.1 mg/dL (2.5-4.9); POTASSIUM 3.3 mmol/L (3.5-5.1)
[2022-10-22] MEDS: PANTOPRAZOLE 40 MG/PACK PACK GT SCH (09:03)
[2022-10-22] MEDS: GABAPENTIN 100 MG CAPSULE GT SCH ×3 (09:03→16:30)
[2022-10-22] MEDS: CHLORHEXIDINE GLUCONATE 15 ML UDC MM SCH ×2 (09:03→21:31)
[2022-10-22] MEDS: LABETALOL HCL (100MG) 100 MG TABLET GT SCH ×2 (09:05→21:33)
[2022-10-22] MEDS: AMLODIPINE BESYLATE 10 MG TABLET GT SCH (09:05)
[2022-10-22 09:10] LABS: BASOPHILS % (AUTO) 0.2 % (0.0-2.0); EOSINOPHILS % (AUTO) 1.3 % (0.0-6.0); HEMATOCRIT 23 % (39-51); HEMOGLOBIN 7.3 g/dL (13.5-17.5); LYMPHOCYTES % (AUTO) 18.4 % (20.0-44.0); MEAN CORPUSCULAR HGB CONC 33 g/dl (31.0-36.0); MEAN CORPUSCULAR VOLUME 85 fL (80-96); MONOCYTES # (AUTO) 0.4 K/uL (0.1-1.30); MONOCYTES % (AUTO) 8.1 % (2.0-12.0); RED BLOOD CELL COUNT(AUTO) 2.65 MIL/uL (4.5-6.0); WHITE BLOOD COUNT (AUTO) 5.6 K/uL (4.3-11.0)
[2022-10-22 09:15] LABS: PLATELET COUNT (AUTO) 48 K/uL (150-450)
[2022-10-22] MEDS ORDERED: POTASSIUM CHLORIDE 20 MEQ POWDER PACKET GT SCH (10:00)
[2022-10-22] MEDS: VANCOMYCIN HCL 0.75 GM in IV D5W 250 ML IV SCH ×2 (11:50→23:10)
--- NOTE | 2022-10-22 16:59 | NUR ---
SS note: SW received visit from the pt.'s mother, Yoko Gonzalez [phone] stating that she wants the pt. to be discharged to a different facility besides [facility] where pt. is currently residing. SW notified Chantel HADDAD who will follow up with alternate placement.
[2022-10-22 17:37] LABS: EOSINOPHILS % (MANUAL) 1 % (0-4); LYMPHOCYTES % (MANUAL) 20 % (16-48); MONOCYTES % (MANUAL) 9 % (0-11.0); NEUTROPHILS % (MANUAL) 70 (42-76)
[2022-10-22] MEDS: DOCUSATE SODIUM LIQ 100 MG/10 ML UDC GT SCH (18:54)
--- NOTE | 2022-10-22 19:10 | NUR ---
RN NOTES RECEIVED REPORT FROM MORNING RN. PATIENT IN BED [id number]. ON TRACH CONNECTED TO MV WITH PRESCRIBED SETTINGS TOLERATING WELL SATING 99%. WITH IV ACCESS KATELYN MIDLINE PATENT FLUSHES WELL. WITH GT PATENT CONNECTED TO GT FEEDING TOLERATING WELL NO GASTRIC RESIDUAL NOTED AT THIS TIME. BARRAGAN CATHETER CONNECTED TO URINE BAG DRAINING YELLOWISH URINE OUTPUT. ALL SAFETY MEASURES IN PLACE. HOB ELEVATED. CALL LIGHT WITHIN REACH. WILL CLOSELY MONITOR THE PATIENT
[2022-10-22] MEDS: ATORVASTATIN 10 MG TABLET GT SCH (21:32)
[2022-10-22] MEDS: SENNOSIDES 8.6 MG TABLET GT SCH (21:33)
[2022-10-23 04:00] VITALS: BP 110/86
[2022-10-23] MEDS: BACLOFEN (10 MG) 10 MG TABLET GT SCH ×3 (04:46→21:30)
[2022-10-23] MEDS: MEROPENEM 500 MG in IV NS 0.9% 50 ML IV SCH ×3 (04:46→21:32)
[2022-10-23 06:10] LABS: BASOPHILS % (AUTO) 0.2 % (0.0-2.0); EOSINOPHILS % (AUTO) 1.7 % (0.0-6.0); HEMATOCRIT 23 % (39-51); HEMOGLOBIN 7.4 g/dL (13.5-17.5); LYMPHOCYTES # (AUTO) 1.4 K/uL (0.8-4.8); LYMPHOCYTES % (AUTO) 25.9 % (20.0-44.0); MEAN CORPUSCULAR HGB CONC 32 g/dl (31.0-36.0); MEAN CORPUSCULAR VOLUME 85 fL (80-96); MONOCYTES # (AUTO) 0.5 K/uL (0.1-1.30); MONOCYTES % (AUTO) 9.3 % (2.0-12.0); NEUTROPHILS # (AUTO) 3.4 K/uL (1.8-8.9); NEUTROPHILS % (AUTO) 62.9 % (43.0-81.0); PLATELET COUNT (AUTO) 71 K/uL (150-450); RED BLOOD CELL COUNT(AUTO) 2.71 MIL/uL (4.5-6.0); WHITE BLOOD COUNT (AUTO) 5.4 K/uL (4.3-11.0)
--- NOTE | 2022-10-23 06:52 | NUR ---
RN NOTES PATIENT REMAINS STABLE NO SIGNIFICANT CHANGES IN HEALTH CONDITION. TRACH TO VENT WITH PRESCRIBED SETTINGS. GT PATENT, BARRAGAN CONNECTED TO URINE BAG DRAINING YELLOWISH URINE. ALL SAFETY MEASURES IN PLACE HOB ELEVATED. WILL ENDORSED TO MORNING SHIFT FOR CODI
[2022-10-23 07:14] LABS: CREATININE 0.8 mg/dL (0.6-1.3); POTASSIUM 3.8 mmol/L (3.5-5.1)
--- NOTE | 2022-10-23 07:20 | NUR ---
RN notes Received patient in bed, resting without active complaint. Telemetry showed SR HR 94/min. Spo2 96% with Fio2 40% given via tracheostomy through ventilator. Right hand IV site and left upper arm ML is dry and intact. Call mendez is placed within reach. Bed is locked and placed in the lowest position. All safety measures have been implemented. Will continue monitoring and care.
[2022-10-23 08:00] VITALS: BP 108/69
[2022-10-23] MEDS: PANTOPRAZOLE 40 MG/PACK PACK GT SCH (08:15)
[2022-10-23] MEDS: CHLORHEXIDINE GLUCONATE 15 ML UDC MM SCH ×2 (08:15→21:30)
[2022-10-23] MEDS: AMLODIPINE BESYLATE 10 MG TABLET GT SCH (08:15)
[2022-10-23] MEDS: LABETALOL HCL (100MG) 100 MG TABLET GT SCH ×2 (08:15→21:31)
[2022-10-23] MEDS: GABAPENTIN 100 MG CAPSULE GT SCH ×3 (08:15→17:18)
[2022-10-23] MEDS: JEVITY 1.2 CAL 1,000 ML BOTTLE GT PRN (08:20)
[2022-10-23] MEDS: VANCOMYCIN HCL 0.75 GM in IV D5W 250 ML IV SCH ×2 (11:18→23:18)
[2022-10-23 12:00] VITALS: BP 109/67
[2022-10-23 16:00] VITALS: BP 120/52
[2022-10-23] MEDS: DOCUSATE SODIUM LIQ 100 MG/10 ML UDC GT SCH (17:18)
--- NOTE | 2022-10-23 18:50 | NUR ---
RN notes Patient is resting in bed without active complaint. Telemetry showed SR HR 62/min. Spo2 96% with Fio2 40% given via tracheostomy through ventilator. Right hand IV site and left upper arm ML is dry and intact. Oral and tracheal suction is done. Patient is repositioned. Call mendez is placed within reach. Bed is locked and placed in the lowest position. All safety measures have been implemented. Will endorse PM nurse to continue monitoring and care.
[2022-10-23 19:33] LABS: BAND % (MANUAL) 2 % (0.0-5.0); EOSINOPHILS % (MANUAL) 1 % (0-4); LYMPHOCYTES % (MANUAL) 22 % (16-48); MONOCYTES % (MANUAL) 10 % (0-11.0); NEUTROPHILS % (MANUAL) 65 (42-76)
[2022-10-23 20:00] VITALS: BP 106/68
[2022-10-23] MEDS: SENNOSIDES 8.6 MG TABLET GT SCH (21:30)
[2022-10-23] MEDS: ATORVASTATIN 10 MG TABLET GT SCH (21:31)
[2022-10-24] VITALS: BP 109/59
[2022-10-24 04:00] VITALS: BP 108/47
[2022-10-24] MEDS: BACLOFEN (10 MG) 10 MG TABLET GT SCH ×2 (04:58→13:25)
[2022-10-24] MEDS: MEROPENEM 500 MG in IV NS 0.9% 50 ML IV SCH ×2 (04:59→13:26)
[2022-10-24 06:57] LABS: BASOPHILS % (AUTO) 0.1 % (0.0-2.0); EOSINOPHILS % (AUTO) 1.6 % (0.0-6.0); HEMATOCRIT 24 % (39-51); HEMOGLOBIN 7.9 g/dL (13.5-17.5); LYMPHOCYTES # (AUTO) 1.5 K/uL (0.8-4.8); LYMPHOCYTES % (AUTO) 20.6 % (20.0-44.0); MEAN CORPUSCULAR HGB CONC 33 g/dl (31.0-36.0); MEAN CORPUSCULAR VOLUME 84 fL (80-96); MONOCYTES # (AUTO) 0.7 K/uL (0.1-1.30); MONOCYTES % (AUTO) 9.1 % (2.0-12.0); NEUTROPHILS # (AUTO) 5.1 K/uL (1.8-8.9); NEUTROPHILS % (AUTO) 68.6 % (43.0-81.0); PLATELET COUNT (AUTO) 105 K/uL (150-450); RED BLOOD CELL COUNT(AUTO) 2.87 MIL/uL (4.5-6.0); WHITE BLOOD COUNT (AUTO) 7.5 K/uL (4.3-11.0)
[2022-10-24 07:10] LABS: ALBUMIN 2.2 g/dL (3.4-5.0); BILIRUBIN,TOTAL 0.5 mg/dL (0.2-1.0); CALCIUM, SERUM 7.9 mg/dL (8.5-10.1); CREATININE 0.9 mg/dL (0.6-1.3); MAGNESIUM 1.9 mg/dL (1.8-2.4); PHOSPHORUS 3.6 mg/dL (2.5-4.9); POTASSIUM 3.9 mmol/L (3.5-5.1); TOTAL PROTEIN, SERUM 6.3 g/dL (6.4-8.2)
--- NOTE | 2022-10-24 07:15 | NUR ---
RN notes Received patient in bed, resting without active complaint. Telemetry showed SR HR 59/min. SpO2 100% with Fio2 40% given via tracheostomy through ventilator. Right hand IV site and left upper arm ML is dry and intact. Call mendez is placed within reach. Bed is locked and placed in the lowest position. All safety measures have been implemented. Will continue monitoring and care.
[2022-10-24 08:00] VITALS: BP 134/80
[2022-10-24] MEDS: JEVITY 1.2 CAL 1,000 ML BOTTLE GT PRN (09:03)
[2022-10-24] MEDS: LABETALOL HCL (100MG) 100 MG TABLET GT SCH (09:03)
[2022-10-24] MEDS: GABAPENTIN 100 MG CAPSULE GT SCH ×2 (09:04→13:25)
[2022-10-24] MEDS: AMLODIPINE BESYLATE 10 MG TABLET GT SCH (09:05)
[2022-10-24] MEDS: CHLORHEXIDINE GLUCONATE 15 ML UDC MM SCH (09:05)
[2022-10-24] MEDS: PANTOPRAZOLE 40 MG/PACK PACK GT SCH (09:05)
[2022-10-24] MEDS: VANCOMYCIN HCL 0.75 GM in IV D5W 250 ML IV SCH (11:37)
[2022-10-24 12:00] VITALS: BP 110/67
--- NOTE | 2022-10-24 14:30 | NUR ---
RN note Patient is for discharge today. After rn case manager's arrangement, patient will be discharged [facility]. Handover is given to RN Gemma, informed them about the need for IV medication and thus keeping the left upper arm mid-line and right hand peripheral IV.
--- NOTE | 2022-10-24 15:30 | NUR ---
RN Patient is discharged with ambulance RT, Spo2 100% prior to transport. Patient left with midline, IV line and nieto.
== END 2022-10-24 15:44 | DRG 720 ==
LOC: ER 21:59 → TELE1 10-19 01:11 → TELE-TD 10-19 18:07 → TELE1 10-21 09:58
PROVIDERS: ADMIT Nurse Practitioner Acute Care
PROC: 5A1955Z Respiratory Ventilation, Greater than 96 Consecutive Hours (ICD-10-PCS; principal; 2022-10-19)
DX: A41.59 Other Gram-negative sepsis (principal); J96.21 Acute and chronic respiratory failure with hypoxia; N17.0 Acute kidney failure with tubular necrosis; J95.851 Ventilator associated pneumonia; G93.41 Metabolic encephalopathy; D69.6 Thrombocytopenia, unspecified; G93.49 Other encephalopathy; E86.0 Dehydration; Z93.0 Tracheostomy status; Z99.11 Dependence on respirator [ventilator] status; J96.11 Chronic respiratory failure with hypoxia; E87.0 Hyperosmolality and hypernatremia; N39.0 Urinary tract infection, site not specified; I69.391 Dysphagia following cerebral infarction; R13.10 Dysphagia, unspecified; Z93.1 Gastrostomy status; E87.6 Hypokalemia; I69.398 Other sequelae of cerebral infarction; Z74.01 Bed confinement status
CPT/HCPCS: 31720; 36415; 36600; 71045-TC; 80048-TC; 80053-TC; 80076-TC; 80202-TC; 81001; 82803-TC; 82962-TC; 83605-TC; 83735-TC; 83880; 84100-TC; 84484-TC; 85025-TC; 85730-TC; 86850-TC; 87040-TC; 87081-TC; 87086-TC; 94002-TC; 94003-TC; 94760-TC; 94762-TC; 94799-TC; 99082-TC; C9113; C9803; G0378; J0692; J1644; J2185; J2543; J3370; J3480; J3490; J7030; J7040; J7050; J7060; J7070; U0003